=== PATIENT | female | born 1965 | race African-American/Black ===

== ENCOUNTER → 2016-03-24 | Outpatient (CLI) | payer BC ==
--- NOTE | 2016-03-24 11:47 | RAD ---
DATE: 03/24/2016 EXAM: DIGITAL DIAGNOSTIC LT, BREAST LEFT HISTORY: Nodular opacity seen on screening COMPARISON: Screening examination 03/08/2016 This study was interpreted with the benefit of Computerized Aided Detection (CAD). FINDINGS: The breast parenchyma unchanged relative to the screening exam. Coned compression cc and MLO images were obtained as well as an ML view. Nodular opacity, reasonably well-defined, seen on the screening examination persists. The mammographic images are not ominous and would suggest a benign etiology. Targeted ultrasound to the 12:00 area of the left breast similar to be was performed. No abnormality was seen. IMPRESSION: Probable benign findings. Conventional mammographic images are suggested of the left breast in 6 months BI-RADS CATEGORY: 3 PROBABLE BENIGN FINDING(S-SHORT INTERVAL FOLLOW-UP SUGGESTED RECOMMENDED FOLLOW-UP: 6M 6 MONTH FOLLOW-UP PQRS compliance statement: Patient information was entered into a reminder system with a target due date 09/05/2017 for the next mammogram. Mammography is a sensitive method for finding small breast cancers, but it does not detect them all and is not a substitute for careful clinical examination. A negative mammogram does not negate a clinically suspicious finding and should not result in delay in biopsying a clinically suspicious abnormality. "Our facility is accredited by the [employer] Mammography Program."
== END | disposition home or self-care (01) ==
LOC: MAMMO 10:31
PROVIDERS: ATTEND Family Medicine
DX: R92.8 Other abnormal and inconclusive findings on diagnostic imaging of breast (principal)
CPT/HCPCS: 76641; G0206

== ENCOUNTER → 2017-03-27 | Outpatient (CLI) | payer BC | END | disposition home or self-care (01) | LOC: MAMMO 12:27 | DX: R92.8 Other abnormal and inconclusive findings on diagnostic imaging of breast (principal) | CPT/HCPCS: 77066 ==